=== PATIENT | male | born 1985 | race Caucasian/White ===

== ENCOUNTER 2016-08-27 13:30 | Emergency (ER) | payer MEDICAID ==
[~2016-08-27] VITALS: Ht 180.3 cm; Wt 66.7 kg
[2016-08-27 15:12] LABS: BASOPHILS # (AUTO) 0.1 /CMM (0.0-0.2); BASOPHILS % (AUTO) 1.7 % (0.0-2.0); DIFF TOTAL % 100 %; EOSINOPHILS % (AUTO) 0.6 % (0.0-6.0); HEMATOCRIT 47 % (39-51); HEMOGLOBIN 15.6 g/dL (13.5-17.5); LYMPHOCYTES # (AUTO) 1.7 /CMM (0.8-4.8); LYMPHOCYTES % (AUTO) 20.9 % (20.0-44.0); MEAN CORPUSCULAR HEMOGLOBIN 31 PG (26.0-33.0); MEAN CORPUSCULAR HGB CONC 34 g/dl (31.0-36.0); MEAN CORPUSCULAR VOLUME 93 fL (80-96); MONOCYTES # (AUTO) 0.5 /CMM (0.1-1.30); MONOCYTES % (AUTO) 6.3 % (2.0-12.0); NEUTROPHILS # (AUTO) 5.8 /CMM (1.8-8.9); NEUTROPHILS % (AUTO) 70.5 % (43.0-81.0); PLATELET COUNT (AUTO) 255 /CMM (150-450); RED BLOOD CELL COUNT(AUTO) 5.05 MIL/uL (4.5-6.0); WHITE BLOOD COUNT (AUTO) 8.1 K/uL (4.3-11.0)
[2016-08-27] MEDS ORDERED: CT SWABBABLE VALVE TRANS SET 1 EA INFUS.SET MC ONE (15:28)
[2016-08-27] MEDS ORDERED: IOHEXOL-350 100 ML VIAL IV ONE (15:28)
[2016-08-27] MEDS ORDERED: IV NS 0.9% 250 ML IV ONE (15:28)
[2016-08-27 15:29] LABS: CALCIUM, SERUM 9.3 mg/dL (8.5-10.1); CREATININE 1.1 mg/dL (0.6-1.3); POTASSIUM 4.4 mmol/L (3.5-5.1)
[2016-08-27 15:37] LABS: INR 1.1 (0.87-1.13); PROTHROMBIN TIME 11.6 SECS (9.5-12.7)
[2016-08-27 17:13] VITALS: BP 118/67
== END 2016-08-27 17:13 | disposition home or self-care (01) ==
LOC: EDBD 13:30 → ER 14:24
DX: M54.2 Cervicalgia (principal); F12.10 Cannabis abuse, uncomplicated; R79.1 Abnormal coagulation profile
CPT/HCPCS: 36415; 70498; 80048; 85025; 85730; 99285; A4606; J7050; Q9967; Z7610